=== PATIENT | male | born 1980 | race Caucasian/White ===

== ENCOUNTER 2023-10-01 10:54 | Outpatient (CLI) | payer OTHER, SELFPAY ==
--- NOTE | 2023-10-01 | ECG_ITS ---
Measurements Intervals [place] Rate: 60 P: 32 MT: 150 QRS: -4 QRSD: 112 T: 28 QT: 373 QTc: 373 Interpretive Statements SINUS RHYTHM INCOMPLETE RIGHT BUNDLE BRANCH BLOCK [90+ ms QRS DURATION, TERMINAL R IN V1/V2, 40+ ms S IN I/aVL/V4/V5/V6] NO PREVIOUS ECG AVAILABLE FOR COMPARISON Electronically Signed On 10-01-2023 12:42:23 [employer] PATTERN GRADER by Maxime Pereira M.D.
== END 2023-10-01 10:55 | disposition home or self-care (01) ==
LOC: ANHCARD 11:01
PROVIDERS: PCP Family Medicine; Visit Provider Emergency Medicine
DX: R00.2 Palpitations (principal); I45.10 Unspecified right bundle-branch block
CPT/HCPCS: 93005